=== PATIENT | male | born 1960 | race Caucasian/White ===

== ENCOUNTER 2017-06-02 07:59 | Day surgery (SDC) | payer MEDICAID ==
[~2017-06-02 07:59] MED LIST: MORPHINE SULFATE 2 MG/ML DISP.SYRIN IV PRN; ONDANSETRON HCL/PF 2 MG/ML VIAL IV PRN; RINGER'S SOLUTION,LACTATED 1,000 ML IV PRN; oxyCODONE HCL/ACETAMINOPHEN 1 TAB TABLET PO PRN
[2017-06-02] MEDS ORDERED: RINGER'S SOLUTION,LACTATED 1,000 ML IV ONE (08:26)
[2017-06-02] MEDS ORDERED: BUPIVACAINE HCL 50 ML VIAL IJ ONE (09:00)
[2017-06-02] MEDS ORDERED: NEOMYCIN/BACITRACIN/POLYMYXINB 15 APPL TUBE TP ONE (09:15)
[2017-06-02 10:18] VITALS: BP 121/76
== END 2017-06-02 08:00 | disposition home or self-care (01) ==
LOC: AMB 07:59
PROVIDERS: ATTEND Urology
PROC: 0HBAXZZ Excision of Inguinal Skin, External Approach (ICD-10-PCS; principal; 2017-06-02 09:05)
DX: A63.0 Anogenital (venereal) warts (principal); N40.0 Benign prostatic hyperplasia without lower urinary tract symptoms; F17.200 Nicotine dependence, unspecified, uncomplicated; E66.9 Obesity, unspecified; Z68.31 Body mass index [BMI] 31.0-31.9, adult